=== PATIENT | female | born 1960 | race Caucasian/White ===

== ENCOUNTER 2017-11-19 06:54 | Observation (INO) | payer OTHER ==
[2017-11-19] MEDS ORDERED: ROCURONIUM 50 MG INJ (07:00)
[2017-11-19] MEDS ORDERED: SOD CHLORIDE 0.9% 1,000 ML IV (07:00)
[2017-11-19] MEDS ORDERED: LIDOCAINE 2% (SDV) 5 ML INJ (07:00)
[2017-11-19] MEDS ORDERED: EPHEDrine SULFATE 50 MG/5 ML SYG (07:00)
[2017-11-19] MEDS ORDERED: CEFAZOLIN 1 GM INJ (07:00)
[2017-11-19] MEDS ORDERED: PROPOFOL 200 MG INJ (07:00)
[2017-11-19 08:05] LABS: ADD MAN DIFF? NO
[2017-11-19 08:10] LABS: BASOPHILS % 0.6 % (0.0-2.0); EOSINOPHILS # 0.2 10^3/ul (0.0-0.5); EOSINOPHILS % 2.2 % (0.0-7.0); HEMOGLOBIN 13.8 g/dl (12.0-16.0); LYMPHOCYTES # 2.7 10^3/ul (0.8-2.9); LYMPHOCYTES % 40.6 % (15.0-51.0); MEAN CORPUSCULAR HEMOGLOBIN 27.5 pg (29.0-33.0); MEAN CORPUSCULAR HGB CONC 32.9 g/dl (32.0-37.0); MEAN CORPUSCULAR VOLUME 83.8 fl (82.0-101.0); MEAN PLATELET VOLUME 10.4 fl (7.4-10.4); MONOCYTE # 0.4 10^3/ul (0.3-0.9); MONOCYTES % 6.6 % (0.0-11.0); NEUTROPHIL # 3.3 10^3/ul (1.6-7.5); NEUTROPHILS % 49.9 % (39.0-77.0); PLATELET COUNT 251 10^3/UL (140-415); RED BLOOD COUNT 5.01 10^6/ul (4.20-5.40); RED CELL DISTRIBUTION WIDTH 13.1 % (11.5-14.5)
[2017-11-19 08:10] LABS: WHITE BLOOD COUNT 6.7 10^3/ul (4.8-10.8)
[2017-11-19] MEDS ORDERED: THROMBIN 5000 UNIT VIAL (08:22)
[2017-11-19] MEDS ORDERED: FENTAnyl 50 MCG/ML VIAL (08:27)
[2017-11-19] MEDS ORDERED: MIDAZOLAM 1 MG/ML 2 ML INJ (08:28)
[2017-11-19 08:29] LABS: INR 0.88; PT RATIO 0.9
[2017-11-19 08:30] LABS: PARTIAL THROMBOPLASTIN TIME 31.4 Sec (25.0-35.0)
[2017-11-19] MEDS ORDERED: OXYCODONE/ACETAMINOPHEN (5/325) TAB PO ×2 (08:30)
[2017-11-19] MEDS ORDERED: PROCHLORPERAZINE 10 MG INJ IV (08:30)
[2017-11-19] MEDS ORDERED: LABETALOL HCL 20MG INJ IV (08:30)
[2017-11-19] MEDS ORDERED: MEPERIDINE 25 MG INJ IV (08:30)
[2017-11-19] MEDS ORDERED: HYDROmorphONE 1 MG/5 ML IV SYRINGE IV ×3 (08:30)
[2017-11-19] MEDS ORDERED: ONDANSETRON 4 MG INJ IV ×2 (08:30→11:00)
[2017-11-19 08:32] LABS: ALANINE AMINOTRANSFERASE 32 IU/L (13-69); ALBUMIN 4.3 g/dl (3.3-4.9); ALBUMIN/GLOBULIN RATIO 1.34; ALKALINE PHOSPHATASE 103 IU/L (42-121); ANION GAP 12 (8-16); ASPARTATE AMINO TRANSFERASE 30 IU/L (15-46); BILIRUBIN,INDIRECT 0.7 mg/dl (0-1.1); BILIRUBIN,TOTAL 0.7 mg/dl (0.2-1.3); CARBON DIOXIDE 28 mmol/L (21-31); CHLORIDE 107 mmol/L (97-110); GLUCOSE 112 mg/dl (70-220); TOTAL PROTEIN 7.5 g/dl (6.1-8.1)
[2017-11-19 08:38] LABS: BLOOD UREA NITROGEN 15 mg/dl (7-20); CALCIUM 10.4 mg/dl (8.4-10.2); CREATININE 0.66 mg/dl (0.44-1.00); POTASSIUM 4.5 mmol/L (3.5-5.1); SODIUM 142 mmol/L (135-144)
[2017-11-19] MEDS: CEFAZOLIN 2 GM/50 ML (PMX) 50 ML IVPB (09:32)
[2017-11-19] MEDS ORDERED: METOCLOPRAMIDE 10 MG INJ (09:36)
[2017-11-19] MEDS ORDERED: ONDANSETRON 4 MG INJ (09:36)
[2017-11-19] MEDS ORDERED: LABETALOL HCL 20MG INJ (09:36)
[2017-11-19] MEDS ORDERED: DEXAMETHASONE 4 MG/ML 1 ML INJ (09:36)
[2017-11-19] MEDS ORDERED: SUGAMMADEX SODIUM 200 MG/2 ML VIAL IV (09:45)
[2017-11-19] MEDS ORDERED: morphine 2 MG INJ IV (11:00)
[2017-11-19] MEDS: D5W-0.45 NACL + KCL 20 MEQ 1,000 ML IV (15:04)
[2017-11-19] MEDS: PANTOPRAZOLE 40 MG INJ IV (15:07)
[2017-11-19 18:28] LABS: CALCIUM 8.9 mg/dl (8.4-10.2)
[2017-11-19] MEDS: ACETAMINOPHEN 1000MG/100ML IV 100 ML IVPB (23:41)
[2017-11-20] MEDS: D5W-0.45 NACL + KCL 20 MEQ 1,000 ML IV ×3 (00:14→09:33)
[2017-11-20 01:15] LABS: CALCIUM 8.8 mg/dl (8.4-10.2)
[2017-11-20 05:12] LABS: ADD MAN DIFF? NO
[2017-11-20 05:21] LABS: BASOPHILS % 0.2 % (0.0-2.0); HEMATOCRIT 39.6 % (37.0-47.0); HEMOGLOBIN 13.2 g/dl (12.0-16.0); LYMPHOCYTES # 2.4 10^3/ul (0.8-2.9); LYMPHOCYTES % 23.3 % (15.0-51.0); MEAN CORPUSCULAR HEMOGLOBIN 27.8 pg (29.0-33.0); MEAN CORPUSCULAR HGB CONC 33.3 g/dl (32.0-37.0); MEAN CORPUSCULAR VOLUME 83.4 fl (82.0-101.0); MEAN PLATELET VOLUME 10.4 fl (7.4-10.4); MONOCYTE # 0.7 10^3/ul (0.3-0.9); MONOCYTES % 6.3 % (0.0-11.0); NEUTROPHIL # 7.3 10^3/ul (1.6-7.5); PLATELET COUNT 257 10^3/UL (140-415); RED BLOOD COUNT 4.75 10^6/ul (4.20-5.40); RED CELL DISTRIBUTION WIDTH 13.2 % (11.5-14.5)
[2017-11-20 05:21] LABS: WHITE BLOOD COUNT 10.4 10^3/ul (4.8-10.8)
[2017-11-20 05:41] LABS: ANION GAP 11 (8-16); BLOOD UREA NITROGEN 11 mg/dl (7-20); CALCIUM 8.8 mg/dl (8.4-10.2); CARBON DIOXIDE 25 mmol/L (21-31); CHLORIDE 109 mmol/L (97-110); CREATININE 0.66 mg/dl (0.44-1.00); GLUCOSE 136 mg/dl (70-220); POTASSIUM 4.1 mmol/L (3.5-5.1); SODIUM 141 mmol/L (135-144)
[2017-11-20] MEDS: PANTOPRAZOLE 40 MG INJ IV (05:47)
[2017-11-20 05:51] LABS: CALCIUM 8.9 mg/dl (8.4-10.2)
== END 2017-11-20 15:25 | disposition home or self-care (01) ==
LOC: SDS 06:54 → MS1 11:45 → SDS 11:26 → REC 11:26 → MS1 11:52
DX: D35.1 Benign neoplasm of parathyroid gland (principal); E06.3 Autoimmune thyroiditis; K21.9 Gastro-esophageal reflux disease without esophagitis; E78.00 Pure hypercholesterolemia, unspecified; I10 Essential (primary) hypertension; E78.5 Hyperlipidemia, unspecified
CPT/HCPCS: 60500; 80048; 80053; 82310; 85025; 85610; 85730; 88307; 88331; 93005